=== PATIENT | male | born 1965 | race Caucasian/White ===

== ENCOUNTER 2024-06-08 04:30 | Emergency (ER) | payer OTHER, SELFPAY ==
[2024-06-08 04:31] VITALS: BMI 38.0
[2024-06-08 04:42] VITALS: BP 174/84; PULSE 59; RESP 18; TEMP 37; O2SAT 96
[2024-06-08] MEDS: CYCLObenzaPRINE 5 MG TABLET PO (05:06)
[2024-06-08] MEDS: KETOROLAC INJ 60 MG/2 ML VIAL IM (05:06)
--- NOTE | 2024-06-08 05:38 | EDRME_ITS ---
Rapid Medical Screening Exam [facility] Arrival date/time: 06/08/24 04:30 58M with history of HTN and DM presents to ED with several days of L lower back pain w/o fall/trauma. Patient denies CP, SOB, N/V, sudden onset and hematuria/dysuria. Ibuprofen helps, but then it comes back. Chief Complaint: Back Pain/Injury Vital signs: Vital Signs Temperature 98.6 F 06/08/24 04:42 Pulse Rate 59 L 06/08/24 04:42 Respiratory Rate 18 06/08/24 04:42 Blood Pressure 174/84 H 06/08/24 04:42 Pulse Oximetry (%) 96 06/08/24 04:42 Oxygen Delivery Method Room Air 06/08/24 04:42
--- NOTE | 2024-06-08 06:45 | PD.EDBACK ---
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 Patient reports no saddle anesthesia no loss of bowel or bladder patient reports pain worse with movement there are no other associated symptoms or aggravating factors no other modifying factors, patient denies taking medication before coming to ER today Limitations: no limitations RME / HPI RME / HPI Narrative: 06/08/24 04:30 58M with history of HTN and DM presents to ED with several days of L lower back pain w/o fall/trauma. Patient denies CP, SOB, N/V, sudden onset and hematuria/dysuria. Ibuprofen helps, but then it comes back. Related Data Previous Rx's ?Medication ?Instructions ?Recorded cyclobenzaprine 10 mg tablet 10 mg PO TID PRN muscle spasm 10 06/08/24 days #30 tab-caps ibuprofen 800 mg tablet 800 mg PO TID PRN pain #30 tabs 06/08/24 Allergies Allergy/AdvReac Type Severity Reaction Status Date / Time No Known Allergies Allergy Verified 06/08/24 04:34 Review of Systems Review of Systems Systems Reviewed: All systems reviewed, normal except as documented Constitutional Constitutional: Reports system reviewed and no additional complaints, except as documented, Denies fever(s) and Denies headache(s) Eyes Eyes: Reports system reviewed and no additional complaints, except as documented and Denies blurry vision ENT Ears, Nose, Mouth, and Throat: Reports system reviewed and no additional complaints, except as documented, Denies headache(s), Denies nasal congestion and Denies nasal discharge Cardiovascular Cardiovascular: Reports system reviewed and no additional complaints, except as documented, Denies chest pain and Denies dyspnea Respiratory Respiratory: Reports system reviewed and no additional complaints, except as documented, Denies chest congestion, Denies cough and Denies dyspnea Gastrointestinal Gastrointestinal: Reports system reviewed and no additional complaints, except as documented and Denies abdominal pain Musculoskeletal Musculoskeletal: Reports system reviewed and no additional complaints, except as documented and Reports back pain Integumentary/Breasts Skin/Breast: Reports system reviewed and no additional complaints, except as documented and Denies rash Neurologic Neurologic: Reports system reviewed and no additional complaints, except as documented, Reports as per HPI and Denies headache(s) Past Medical History Social History SMOKING STATUS: Current every day smoker ED Exam General Limitations: Present no limitations General appearance: Present alert and in no apparent distress Head Head exam: Present atraumatic and normal inspection Eye Eye exam: Present normal appearance, PERRL and EOMI; Absent conjunctival injection ENT ENT exam: Present normal exam, normal oropharynx and mucous membranes moist Neck Neck exam: Present normal inspection, full ROM and trachea midline Chest Chest inspection: Present normal inspection and symmetric chest wall rise Respiratory Respiratory exam: Present normal lung sounds bilaterally Cardiovascular Cardiovascular exam: Present regular rate, normal rhythm and normal heart sounds Abdominal Exam Abdominal exam: Present soft and normal bowel sounds; Absent distention, tenderness, guarding, rebound or rigidity Extremities Exam Extremities exam: Present normal inspection and full ROM Back Exam Back exam: Present normal inspection, full ROM, tenderness, muscle spasm and paraspinal tenderness; Absent CVA tenderness (R) or CVA tenderness (L) Neurological Exam Neurological exam: Present alert, oriented X3 and CN II-XII intact Psychiatric Psychiatric exam: Present normal affect and normal mood Skin Skin exam: Present warm, dry, intact and normal color Course Quality Measures none Orders Category Date Time Status CYCLObenzaPRINE [Flexeril] Med 06/08/24 04:53 Discontinued 5 mg PO X1 ONE Ketorolac Inj [Toradol Inj] Med 06/08/24 04:53 Discontinued 60 mg IM X1 ONE Vital Signs Vital signs: Vital Signs Temperature 98.6 F 06/08/24 04:42 Pulse Rate 59 L 06/08/24 04:42 Respiratory Rate 18 06/08/24 04:42 Blood Pressure 174/84 H 06/08/24 04:42 Pulse Oximetry (%) 96 06/08/24 04:42 Oxygen Delivery Method Room Air 06/08/24 04:42 O2 saturation 96% room air within normal limits Back Pain / Injury MDM Narrative MDM Narrative:: 58-year-old male presents emergency department today stating he was loading water in the refrigerator at work patient reports he was lifting heavy cases and when he did so he developed pain in the left lower back. Patient reports no saddle anesthesia no loss of bowel or bladder patient reports pain worse with movement there are no other associated symptoms or aggravating factors no other modifying factors, patient denies taking medication before coming to ER today On exam patient well-appearing patient does not appear ill or toxic by the time I seen this patient patient received pain medication for my colleague Patient reports his symptoms have improved Symptoms consistent with muscle spasm Workmen's Compensation papers completed Patient discharged home in no distress to follow-up with Workmen's Compensation doctor in the next 24 to 48 hours and for any worsening symptoms to return to the ER immediately Patient data External records reviewed:: [facility] previous records Clinical information provided by:: patient Social determinants that could affect healthcare access:: none Patient has the following chronic illnesses:: See history How is presenting disease/condition affected by chronic disease/condition?: uneffected by Evaluation data The following diagnostics were reviewed and interpreted by me:: other (specify) (N/A) Lab and/or radiology exams considered but not ordered:: N/A Interpretation Summary: N/A Medications / Prescriptions Medications or Prescriptions considered but not ordered:: Given Medication administrations:: Medication Administration History Discontinued Medications Cyclobenzaprine HCl (Cyclobenzaprine 5 Mg Tablet) 5 mg PO X1 ONE Stop: 06/08/24 04:54 Last Admin: 06/08/24 05:06 Dose: 5 mg Documented By: EF Ketorolac Tromethamine (Ketorolac Inj 60 Mg/2 Ml Vial) 60 mg IM X1 ONE Stop: 06/08/24 04:54 Last Admin: 06/08/24 05:06 Dose: 60 mg Documented By: EF Given Consultations Consultation(s) initiated? (list below): No Diagnosis Differential diagnosis back pain/injury: lumbar radiculopathy and strain of lumbar region Most likely diagnosis given after review of the tests above:: Back pain Admission Indicated Admission indicated?: not indicated Admission Request Was there a request for admission?: No Disposition Plan Disposition Plan: Discharge Discharge Attestation Discharge Attestation: The patient and all family members were given an opportunity to ask questions and understood the discharge instructions. Discharge instructions specifically effects, indications for sooner follow up or return to the emergency department, and the expected course of current diagnosis. Patient condition: Stable Discharge Plan Plan Patient Disposition: HOME (Self Care) Disposition Comment: Stable Prescriptions/Referrals Prescriptions/Med Rec: New cyclobenzaprine 10 mg tablet 10 mg PO TID PRN (Reason: muscle spasm) 10 Days Qty: 30 0RF ibuprofen 800 mg tablet 800 mg PO TID PRN (Reason: pain) Qty: 30 0RF Referrals: No Primary/Family,Physician [Primary Care Provider] - In 1 week Problem List Clinical Impression: Strain of lumbar region Patient/Caregiver Discharge Instructions Education Materials: ED Back Sprain/Strain Additional Instructions: Please follow up with your Workmen's Compensation doctor in the next 24-48hrs for any worsening symptoms return here immediately Print Language: Lao Stand Alone Forms: [place] Award Info., Patient Portal Info Letter PA/SUBSTATION MANAGER Supervising Physician PA/SUBSTATION MANAGER Supervising Physician: Dr. Mcallister
== END 2024-06-08 07:11 | disposition home or self-care (01) ==
PROVIDERS: Emergency Provider Emergency Medicine
DX: S39.012A Strain of muscle, fascia and tendon of lower back, initial encounter (principal); X50.0XXA Overexertion from strenuous movement or load, initial encounter; E11.9 Type 2 diabetes mellitus without complications; I10 Essential (primary) hypertension
CPT/HCPCS: 96372; 99283; J1885; A9270